=== PATIENT | female | born 1980 | race Hispanic/Latino ===

== ENCOUNTER 2022-04-26 19:22 | Emergency (ER) | payer OTHER ==
[2022-04-26 20:35] LABS: Absolute Lymphocytes (CBC) 1.9 K/uL (0.7-4.9); Hematocrit 32.4 % (36.0-45.0); MCV 85.9 fL (80-100); MPV 8.4 fL (7.6-11.3); RBC Red Blood Cell Count 3.77 M/uL (3.86-4.86)
[2022-04-26 20:39] LABS: Protime INR 1.02
--- NOTE | 2022-04-26 21:38 | RAD REPORT ---
EXAM DESCRIPTION: US - 1St Trimest Single 1St Fetus - 04/26/2022 9:24 pm CLINICAL HISTORY: VAGINAL BLEEDING Pelvic pain. COMPARISON: No comparisons FINDINGS: Submitted images appear to be transabdominal pelvic ultrasound images. Transvaginal images are not present which limits study. Fluid is present in the endometrial canal. A definitive gestational sac is not seen. Endometrium does appear somewhat thickened to 2 cm. Both ovaries are unremarkable with normal Doppler flow. IMPRESSION: Thickened endometrial stripe without definitive gestational sac. In the setting of of a positive HCG level, this would indicate of unknown location. Therefore, serial HCG level fo llow-up and pelvic sonography follow-up in 7 days would be recommended. Transvaginal images were not submitted, limiting quality of the study.
--- NOTE | 2022-04-26 22:13 | ER ---
Nurse's Notes [facility] Name: Zulema Oliveira Age: 41 yrs Sex: Female : 1980 Arrival Date: 04/26/2022 Time: 19:30 Bed 16 Private MD: Diagnosis: Incomplete spontaneous without complication Presentation: 04/26 19:47 Chief complaint: Patient states: Patient noticed bleeding from vagina that started ke1 around 1530, bright red with clots. Coronavirus screen: Vaccine status: Patient reports receiving the 2nd dose of the covid vaccine. Ebola Screen: No symptoms or risks identified at this time. Initial Sepsis Screen: Does the patient meet any 2 criteria? No. Patient's initial sepsis screen is negative. Does the patient have a suspected source of infection? No. Patient's initial sepsis screen is negative. Risk Assessment: Do you want to hurt yourself or someone else? Patient reports no desire to harm self or others. Onset of symptoms was April 26, 2022 at 13:00. 19:47 Method Of Arrival: Ambulatory ke1 19:47 Acuity: ANN-MARIE 3 ke1 Triage Assessment: 19:50 General: Appears in no apparent distress. Behavior is appropriate for age. Pain: ke1 Complains of pain in pelvis Pain currently is 2 out of 10 on a pain scale. at worst was 2 out of 10 on a pain scale. level that patient reports is acceptable is 4 out of 10 on a pain scale. : Reports vaginal bleeding that is bright red, with clots, heavy flow. 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 - Social history:: Smoking status: Patient denies any tobacco usage or history of. Screenin:51 Abuse screen: Denies threats or abuse. Nutritional screening: No deficits noted. ke1 Tuberculosis screening: No symptoms or risk factors identified. Fall Risk None identified. Assessment: 22:00 Reassessment: Patient is alert, oriented x 3, equal unlabored respirations, skin ke1 warm/dry/pink. Patient denies pain at this time. 22:32 : ke1 Vital Signs: 19:47 BP 123 / 82; Pulse 63; Resp 17; Temp 98.6(O); Pulse Ox 100% on R/A; Weight 74.39 kg; ke1 Height 5 ft. 3 in. (160.02 cm); Pain 2/10; 22:31 BP 122 / 78; Pulse 65; Resp 17; Temp 98.4; Pulse Ox 100% on R/A; Pain 0/10; ke1 19:47 Body Mass Index 29.05 (74.39 kg, 160.02 cm) ke1 ED Course: 19:30 Patient arrived in ED. mr 19:33 Elena Villatoro MD is Attending Physician. sd2 19:47 Qasim Pierce RN is Primary Nurse. ke1 19:50 Triage completed. ke1 19:51 Arm band placed on left wrist. ke1 19:53 Bed in low position. Call light in reach. ke1 21:13 HCG, Quantitative Sent. ke1 21:13 Abo/rh Typing Sent. ke1 21:14 HCG-Quantitative Sent. ke1 21:26 US 1st Trimest Single 1st Fetus In Process Unspecified. EDMS 22:31 No provider procedures requiring assistance completed. IV discontinued. ke1 Administered Medications: No medications were administered Medication: 22:32 VIS not applicable for this client. ke1 Outcome: 22:13 Discharge ordered by . sd2 22:32 Discharged to home ambulatory. ke1 22:32 Condition: good 22:32 Discharge instructions given to patient. 22:32 Patient left the ED. ke1 Signatures: Dispatcher [employer] EDMA Carmen Schwartz mr Qasim Pierce RN RN ke1 Elena Villatoro MD MD sd2 Corrections: (The following items were deleted from the chart) 19:53 19:47 Chief complaint: Patient states: Patient noticed bleeding from vagina ke1 ke1 22:00 19:53 : ke1 ke1
--- NOTE | 2022-04-26 22:13 | EDPHYS ---
Physician Documentation [facility] Name: Zulema Oliveira Age: 41 yrs Sex: Female : 1980 Arrival Date: 04/26/2022 Time: 19:30 Bed 16 Private MD: ED Physician Elena Villatoro HPI: 04/26 19:54 This 41 yrs old Female presents to ER via Ambulatory with complaints of sd2 Vaginal Bleeding. 19:54 41-year-old female presents with chief complaint of vaginal bleeding. [place] sd[place] having heavy vaginal bleeding with a large clot that came out that she was able to show me a picture of. She reports that she is about 1 week late on her period and normally has regular periods and is concerned that she may have been . She has not taken any test at home. She states she initially had some pain with the bleeding but it has since resolved. She denies any chest pain or shortness of breath or any other significant symptoms at this time. 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 - Social history:: Smoking status: Patient denies any tobacco usage or history of. ROS: 19:54 Constitutional: Negative for fever, chills, and weight loss, Eyes: Negative for injury, sd2 pain, redness, and discharge, Cardiovascular: Negative for chest pain, palpitations, and edema, Respiratory: Negative for shortness of breath, cough, wheezing. Abdomen/GI: Negative for abdominal pain, nausea, vomiting, diarrhea. Back: Negative for injury and pain, : Negative for dysuria, urinary frequency, hesitancy, urgency and hematuria. Positive for vaginal bleeding and pelvic pain (now resolved.) MS/Extremity: Negative for injury and deformity, Skin: Negative for injury, rash, and discoloration, Neuro: Negative for headache, numbness and tingling. Exam: 19:54 Constitutional: This is a well developed, well nourished patient who is awake, alert, sd2 and in no acute distress. Head/Face: Normocephalic, atraumatic. Eyes: EOMI, normal conjunctiva bilaterally Chest/axilla: Normal chest wall appearance and motion. Nontender with no deformity. Cardiovascular: Regular rate and rhythm with a normal S1 and S2. No gallops, murmurs, or rubs. 2+ distal pulses. Respiratory: Lungs have equal breath sounds bilaterally, clear to auscultation and percussion. No rales, rhonchi or wheezes noted. No increased work of breathing, no retractions or nasal flaring. Abdomen/GI: Soft, non-tender, with normal bowel sounds. No guarding or rebound. No evidence of tenderness throughout. Skin: Warm, dry with normal turgor. Normal color with no rashes, no lesions, and no evidence of cellulitis. MS/ Extremity: Pulses equal, no cyanosis. Neurovascular intact. Full, normal range of motion. Ambulatory without difficulty. Psych: Awake, alert, with orientation to person, place and time. Behavior, mood, and affect are within normal limits. Vital Signs: 19:47 BP 123 / 82; Pulse 63; Resp 17; Temp 98.6(O); Pulse Ox 100% on R/A; Weight 74.39 kg; ke1 Height 5 ft. 3 in. (160.02 cm); Pain 2/10; 22:31 BP 122 / 78; Pulse 65; Resp 17; Temp 98.4; Pulse Ox 100% on R/A; Pain 0/10; ke1 19:47 Body Mass Index 29.05 (74.39 kg, 160.02 cm) ke1 MDM: 19:50 Patient medically screened. sd2 19:55 Differential diagnosis: Menorrhagia, metrorrhagia, incomplete , fibroids, sd2 anemia among others. Data reviewed: vital signs, nurses notes. 22:10 Data reviewed: lab test result(s), radiologic studies. Counseling: I had a detailed sd2 discussion with the patient and/or guardian regarding: the historical points, exam findings, and any diagnostic results supporting the discharge/admit diagnosis, lab results, radiology results, the need for outpatient follow up, to return to the emergency department if symptoms worsen or persist or if there are any questions or concerns that arise at home. Medical screen evaluation completed. EMTALA emergency medical condition absent. ED course: Labs and imaging reviewed. Labs with positive test and elevated HCG. US with thickened endometrial strip but no gestational sac. Suspect incomplete miscarriage. No significant anemia present. Bleeding has slowed. Pt advised of all results. She is here visiting from [place] and will follow up with her doctor and return home tomorrow for repeat HCG levels and continued monitoring. Advised of continued supportive care and strict return precautions. Rh positive. No indication for Rhogam. Pt verbalizes understanding. . 04/26 19:51 Order name: CBC with Diff; Complete Time: 20:44 sd2 04/26 19:51 Order name: BMP; Complete Time: 21:46 sd2 04/26 19:51 Order name: Test, Serum; Complete Time: 20:44 04/26 19:51 Order name: PT-INR; Complete Time: 20:44 04/26 19:51 Order name: Ptt, Activated; Complete Time: 20:44 sd2 04/26 20:45 Order name: HCG-Quantitative 04/26 20:45 Order name: 1st Trimest Single 1st Fetus; Complete Time: 21:46 sd2 04/26 20:45 Order name: Abo/rh Typing; Complete Time: 21:46 sd2 04/26 20:49 Order name: HCG, Quantitative; Complete Time: 21:46 EDMS 04/26 21:26 Order name: ABO/RH no charge; Complete Time: 21:36 EDMS Administered Medications: No medications were administered Disposition Summary: 04/26/22 22:13 Discharge Ordered Location: Home sd2 Problem: new sd2 Symptoms: have improved sd2 Condition: Stable sd2 Diagnosis - Incomplete spontaneous without complication sd2 Followup: sd2 - With: Private Physician - When: 2 - 3 days - Reason: Recheck today's complaints, Continuance of care, Re-evaluation by your physician Discharge Instructions: - Discharge Summary Sheet sd2 - Incomplete Miscarriage sd2 - Miscarriage sd2 - Managing Loss sd2 Forms: - Medication Reconciliation Form sd2 - Thank You Letter sd2 - Antibiotic Education sd2 - Prescription Opioid Use sd2 Signatures: Dispatcher [employer] EDMS Qasim Pierce RN RN ke1 Dunlop, Stephanie, MD MD sd2
[2022-04-28 09:07] VITALS: O2SAT 100
[2022-04-28 09:13] VITALS: BP 122/78; TEMP 98.4
== END 2022-04-26 22:32 | disposition home or self-care (01) ==
LOC: ER 19:22
DX: O03.4 Incomplete spontaneous abortion without complication (principal)
CPT/HCPCS: 36415; 76801; 80048; 84702; 84703; 85025; 85610; 85730; 86900; 86901; 99283